=== PATIENT | male | born 1995 | race Caucasian/White ===

== ENCOUNTER 2020-11-10 10:55 | Emergency (ER) | payer MEDICAID ==
[~2020-11-10] VITALS: Ht 170.2 cm; Wt 81.6 kg
[2020-11-10 11:08] VITALS: BP_SYST 132
--- NOTE | 2020-11-10 11:10 | NUR ---
Placed in room 7 . Placed on quality assurance monitor body, blood pressure machine and pulse oximeter. To gown for exam. Side rails up.
--- NOTE | 2020-11-10 11:15 | NUR ---
PT CAME IN C/O UNRESOLVED FLANK PAIN SINCE . REPORTS BEING SEEN AND DIAGNOSED WITH KIDNEY STONE AND RX OF MOTRIN AND NORCO GIVEN. PT STATES HE HAS BEEN NAUSEOUS AND UNABLE TO EAT REGULARLY SINCE. WAS NOT PROVIDED WITH RX FOR NAUSEA. DENIES PAIN BUT DESCRIBES FEELING "SOMETHING STRANGE" PRESENT IN [place]THRA. PRESENTS AMBULATORY, AAOX4, V/S STABLE
[2020-11-10] MEDS ORDERED: KETOROLAC TROMETHAMINE 60 MG/2 ML VIAL IM ONE (11:30)
[2020-11-10] MEDS ORDERED: ONDANSETRON 4 MG ODT TAB PO ONE (11:30)
--- NOTE | 2020-11-10 11:40 | NUR ---
LAB AT THE BEDSIDE FOR BLOOD DRAW
[2020-11-10 12:00] LABS: CALCIUM 8.7 mg/dL (8.4-11.0); CREATININE 1.43 mg/dL (0.55-1.30); POTASSIUM 3.8 mmol/L (3.5-5.1)
[2020-11-10 12:02] LABS: BASOPHILS # (AUTO) 0.1 K/uL (0.0-0.2); EOSINOPHILS # (AUTO) 0.1 K/uL (0.0-0.4); EOSINOPHILS % (AUTO) 1.3 % (0.0-4.0); HEMATOCRIT 46.3 % (36-54); HEMOGLOBIN 15.9 g/dL (14.0-18.0); LYMPHOCYTES # (AUTO) 1.4 K/uL (1.0-5.5); LYMPHOCYTES % (AUTO) 17.5 % (20.5-51.5); MEAN CORPUSCULAR HEMOGLOBIN 30 pg (27-31); MEAN CORPUSCULAR HGB CONC 34 % (32-36); MEAN CORPUSCULAR VOLUME 87 fL (79.0-98.0); MONOCYTES % (AUTO) 12.3 % (1.7-9.3); NEUTROPHILS # (AUTO) 5.3 K/uL (1.8-7.7); NEUTROPHILS % (AUTO) 67.9 % (40.0-70.0); PLATELET COUNT (AUTO) 265 K/uL (130-430); RED CELL DISTRIBUTION WIDTH 13.9 % (9.0-15.0); WHITE BLOOD COUNT (AUTO) 7.7 K/uL (4.8-10.8)
[2020-11-10 12:06] LABS: ALBUMIN 3.5 g/dL (3.4-4.8); TOTAL BILIRUBIN 0.8 mg/dL (0.0-1.0)
--- NOTE | 2020-11-10 12:16 | NUR ---
Patient transported to radiology via WC, accompanied by STAFF.
[2020-11-10 12:21] LABS: PROTHROMBIN TIME 10.3 SECS (9.5-12.5)
[2020-11-10 12:30] LABS: BILIRUBIN,URINE NEGATIVE (NEGATIVE); BLOOD, URINE NEGATIVE (NEGATIVE); CLARITY/URINE CLOUDY (CLEAR); COLOR,URINE YELLOW (YELLOW); GLUCOSE,URINE NEGATIVE (NEGATIVE); KETONES,URINE 1+ (NEGATIVE); LEUKOCYTE ESTERASE ,URINE NEGATIVE (NEGATIVE); NITRITE, URINE NEGATIVE (NEGATIVE); PROTEIN URINE NEGATIVE (NEGATIVE); UROBILINOGEN,URINE 0.2 (0.2-1.0)
[2020-11-10 12:56] LABS: BACTERIA,URINE None Seen /HPF (None Seen); RBC,URINE 0-3 /HPF (0-3); WBC,URINE 0-3 /HPF (0-3)
[2020-11-10 12:57] LABS: URINE AMORPHOUS PHOSPHATES 4+ /HPF (None Seen)
--- NOTE | 2020-11-10 13:15 | NUR ---
PT RESTING IN BED, NO S/SX OF DISTRESS, V/S STABLE
[2020-11-10] MEDS ORDERED: HYDR-3917 PO (13:44)
[2020-11-10] MEDS ORDERED: ONDA-8 TL (13:44)
[2020-11-10 14:00] VITALS: BP_SYST 134
--- NOTE | 2020-11-10 14:00 | NUR ---
Patient given written and verbal discharge instructions and verbalizes understanding. ER MD discussed with patient the results and treatment provided. Patient in stable condition. ID arm band removed. Rx of NORCO AND ZOFRAN given. Patient educated on pain management and to follow up with PMD. Pain Scale 0/10 Opportunity for questions provided and answered. Medication side effect fact sheet provided.
== END 2020-11-10 14:00 | disposition home or self-care (01) ==
LOC: SED 10:55
DX: N23 Unspecified renal colic (principal); R11.2 Nausea with vomiting, unspecified
CPT/HCPCS: 36415; 74176; 76376; 80053; 81000; 82150; 83690; 85025; 85610; 85730; 96372; 99284; J1885; Q0162